=== PATIENT | female | born 1945 | race Caucasian/White ===

== ENCOUNTER 2020-06-17 23:34 | Emergency (ER) | payer MEDICARE, OTHER ==
[~2020-06-17] VITALS: Ht 170.2 cm; Wt 65.0 kg
--- NOTE | 2020-06-18 00:04 | NUR ---
PT HERE FOR GLF AFTER ETOH THIS EVENING. PT HAS HEMATOMA TO LEFT BUTTOCK AND BACK OF HEAD. PT ALSO HAS A SKIN TEAR TO RIGHT ARM. VSS. PT SAYS SHE HAD 3 GLASSES OF WINE. PT TO XRAY
--- NOTE | 2020-06-18 00:16 | NUR ---
PTS DAUGHTER MAYURI CALLED TO CHECK ON MOTHER. PHONE # [phone]
--- NOTE | 2020-06-18 00:28 | NUR ---
PT TO CT
[2020-06-18] MEDS ORDERED: DIPH,PERTUSS(ACELL),TET VAC/PF 0.5 ML IM-VACC ONE ×2 (01:19)
[2020-06-18] MEDS ORDERED: HYDROcodone/APAP 5/325 TABLET ONE (01:19)
--- NOTE | 2020-06-18 01:29 | NUR ---
pt medicated for pain and tdap updated. pt resting with no needs at this time. Vss. Call light in reach
[2020-06-18] MEDS ORDERED: HYDROcodone/APAP 5/325 TABLET PO ONE (01:30)
--- NOTE | 2020-06-18 01:54 | NUR ---
CALLED AND LEFT MESSAGE FOR PTS DAUGHTER WITH HER PERMISSION. PT TO STAY UNTIL PAIN IS MORE CONTROLLED AND SHE IS MORE SOBER PER MD. CALL LIGHT IN REACH
[2020-06-18] MEDS ORDERED: NEOSPORIN OINT. PKT 1 PACKET ONE (02:22)
--- NOTE | 2020-06-18 03:28 | NUR ---
PT SLEEPING. EVEN RISE AND FALL OF CHEST OBSERVED. VSS. CALL LIGHT IN REACH
--- NOTE | 2020-06-18 05:05 | NUR ---
PT SLEEPING. EVEN RISE AND FALL OF CHEST OBSERVED. VSS. PT WAKES TO VERBAL STIMULI AND THEN GOES BACK TO SLEEP. WILL CALL AND UPDATE DAUGHTER AROUND 6 AM. CALL LIGHT IN REACH
--- NOTE | 2020-06-18 05:41 | NUR ---
pt able to ambulate with a steady gait. vss. Pt placed back in bed with no needs at this time
--- NOTE | 2020-06-18 06:29 | NUR ---
PT CALLED FAMILY TO COME GET HER. PT GETTING DRESSED. AND WILL GO WHEN FAMILY ARRIVES
[2020-06-18 06:47] VITALS: BP 111/72
--- NOTE | 2020-06-18 06:47 | NUR ---
Patient given discharge instructions and they have confirmed that they understand the instructions. Patient ambulatory with steady gait.
== END 2020-06-18 06:49 | disposition home or self-care (01) ==
LOC: ED 06-18 06:15
DX: S30.0XXA Contusion of lower back and pelvis, initial encounter (principal); S00.93XA Contusion of unspecified part of head, initial encounter; W01.0XXA Fall on same level from slipping, tripping and stumbling without subsequent striking against object, initial encounter; Y93.89 Activity, other specified; Y92.009 Unspecified place in unspecified non-institutional (private) residence as the place of occurrence of the external cause; Y99.8 Other external cause status
CPT/HCPCS: 70450; 72220; 90471; 90715; 99284

== ENCOUNTER → 2020-10-11 | Outpatient (CLI) | payer MEDICARE ==
[~2020-10-11] MED LIST: REGADENOSON 0.4 MG/5 ML SYRINGE ONE
== END | disposition home or self-care (01) ==
LOC: CFH 06:54
PROVIDERS: ATTEND Internal Medicine Cardiovascular Disease
DX: I08.3 Combined rheumatic disorders of mitral, aortic and tricuspid valves (principal); I44.7 Left bundle-branch block, unspecified; I10 Essential (primary) hypertension; I42.9 Cardiomyopathy, unspecified; Z87.891 Personal history of nicotine dependence; Z85.3 Personal history of malignant neoplasm of breast
CPT/HCPCS: 93306; J2785

== ENCOUNTER → 2020-12-20 | Outpatient (CLI) | payer MEDICARE | END | disposition home or self-care (01) | LOC: CFH 08:03 | PROVIDERS: ATTEND Internal Medicine Cardiovascular Disease | DX: I44.7 Left bundle-branch block, unspecified (principal); I10 Essential (primary) hypertension; I35.0 Nonrheumatic aortic (valve) stenosis; I42.9 Cardiomyopathy, unspecified | CPT/HCPCS: 78452; 93017; A9502; J2785 ==

== ENCOUNTER → 2021-07-26 | Outpatient (CLI) | payer MEDICARE | END | disposition home or self-care (01) | LOC: CFH 13:22 | PROVIDERS: ATTEND Internal Medicine Cardiovascular Disease | DX: I08.3 Combined rheumatic disorders of mitral, aortic and tricuspid valves (principal); I42.9 Cardiomyopathy, unspecified; E78.5 Hyperlipidemia, unspecified; I44.7 Left bundle-branch block, unspecified; Z87.891 Personal history of nicotine dependence | CPT/HCPCS: 93306; 93356 ==